=== PATIENT | male | born 1995 | race Two or more races ===

== ENCOUNTER 2023-02-14 22:36 | Emergency (ER) | payer OTHER ==
[~2023-02-14] VITALS: Ht 160 cm; Wt 79.4 kg
[2023-02-15] MEDS ORDERED: KETOROLAC TROMETH 30 MG/ML 1ML VIAL IM ONE (03:00)
[2023-02-15 03:18] VITALS: BP 121/78
== END 2023-02-15 04:30 | disposition home or self-care (01) ==
LOC: ER 22:36
DX: S00.81XA Abrasion of other part of head, initial encounter (principal); M25.512 Pain in left shoulder; M54.2 Cervicalgia; F17.210 Nicotine dependence, cigarettes, uncomplicated; V43.52XA Car driver injured in collision with other type car in traffic accident, initial encounter; Y93.89 Activity, other specified; Y92.488 Other paved roadways as the place of occurrence of the external cause; Y99.8 Other external cause status
CPT/HCPCS: 70450; 71250; 72125; 73060; 74176; 96372; 99285; J1885